=== PATIENT | male | born 2000 | race Hispanic/Latino ===

== ENCOUNTER 2022-01-12 01:20 | Emergency (ER) | payer SELFPAY | END 2022-01-12 07:46 | disposition home or self-care (01) | LOC: CSHERS 01:20 | DX: F10.129 Alcohol abuse with intoxication, unspecified (principal) | CPT/HCPCS: 36416; 96360 ==

== ENCOUNTER 2022-07-29 21:02 | Observation (INO) | payer OTHER, SELFPAY ==
[2022-07-29 22:14] LABS: #Eosinphils 0.2 10x3/uL (0.0-0.5); #Monocytes 0.6 10x3/uL (0.0-1.1); #Neutrophils 4.4 10x3/uL (1.5-8.4); %Basophils 0.5 % (0.0-2.0); %Eosinophils 1.8 % (0.0-6.0); %Lymphocytes 36.7 % (18.0-47.0); %Monocytes 7.1 % (0.0-10.0); %Neutrophils 53.7 % (40.0-75.0); Hemoglobin 14.7 g/dL (13.5-17.5); Mean Corpuscular HGB CONC 33.3 g/dL (32.0-36.0); Mean Corpuscular Volume 81.1 fl (81.2-95.1); Mean Platelet Volume 9.4 fl (7.4-10.4); Platelet Count 229 10x3/uL (150-450); RBC Distribution Width 12.6 % (11.5-14.5); Red Blood Cell (RBC) Count 5.45 10x6/uL (4.32-5.72); White Blood Cell (WBC) Count 8.2 10x3/uL (3.5-10.5)
[2022-07-29 22:17] LABS: Bilirubin Neg (Negative); Blood, Urine Negative (Negative); Glucose, Urine (Dipstick) Normal (Negative); Ketone, Urine Negative (Negative); Leukocyte Negative (Negative); Nitrite Negative (Negative); Protein, Urine (Dipstick) Negative (Neg-Trace); Specific Gravity, Urine 1.015 (1.005-1.030); Urobilinogen Normal mg/dL (Less than 2); pH, Urine 6.5 (5.0-9.0)
[2022-07-29 22:22] LABS: Clarity Clear (Clear)
[2022-07-29 22:35] LABS: ALT (SGPT) 13 U/L (8-55); AST (SGOT) 17 U/L (10-45); Albumin 4.6 g/dL (3.5-5.0); Alkaline Phosphatase 71 U/L (50-130); Anion Gap 12 mmol/L (10-20); BUN (Urea Nitrogen) 14 mg/dL (8.4-21.0); Calc. Creatinine Clearance 0 mL/min (70-130); Calcium 9.7 mg/dL (7.8-10.44); Carbon Dioxide 28 mmol/L (22-29); Chloride 102 mmol/L (98-107); Estimated GFR 106; Glucose 95 mg/dL (70-105); Lipase 28 U/L (8-78); Potassium 4.2 mmol/L (3.5-5.1); Protein, Total 7.6 g/dL (6.0-8.3); Sodium 138 mmol/L (136-145)
[2022-07-29] MEDS ORDERED: Piperacillin/Tazobactam 3.375 GM VIAL ONE (23:46)
[2022-07-30 01:08] LABS: SARS-CoV-2 NAA Rapid Test Not Detected (NotDetected)
[2022-07-30] MEDS ORDERED: Bupivacaine/Epinephrine 0.25% 30 ML VIAL ONE (11:25)
[2022-07-30] MEDS ORDERED: CEFAZOLIN 2 GM VIAL ONE (14:53)
[2022-07-30] MEDS ORDERED: Midazolam HCl 2 mg/2 ml Vial ONE (15:11)
[2022-07-30] MEDS ORDERED: PROPOFOL 20 ML ONE (15:11)
[2022-07-30] MEDS ORDERED: Fentanyl 100 MCG/2 ML VIAL ONE (15:11)
[2022-07-30] MEDS ORDERED: Rocuronium Bromide 10 MG/ML (10ML VIAL) ONE (15:12)
[2022-07-30] MEDS ORDERED: Lidocaine 1% PF 5 ML VIAL ONE (15:12)
[2022-07-30] MEDS ORDERED: Ondansetron PF 4 MG/2 ML Vial ONE ×2 (15:12→16:43)
[2022-07-30] MEDS ORDERED: Dexamethasone 4 mg/ml Vial ONE (15:12)
[2022-07-30] MEDS ORDERED: Glycopyrrolate 0.2 MG/ML 5 ML SYRINGE ONE (15:54)
[2022-07-30] MEDS ORDERED: Ketorolac Tromethamine 30 MG/ML VIAL ONE (15:54)
[2022-07-30] MEDS ORDERED: HYDROcodone/Acetaminophen 5/325 mg Tablet ONE (17:01)
== END 2022-07-30 18:08 | disposition home or self-care (01) ==
LOC: CSHERS 21:02 → INTOOBSV 07-30 03:19 → CSHERHOLD 07-30 03:19
PROVIDERS: ADMIT Surgery; ATTEND Surgery
PROC: 0DTJ4ZZ Resection of Appendix, Percutaneous Endoscopic Approach (ICD-10-PCS; principal; 2022-07-30)
DX: K35.80 Unspecified acute appendicitis (principal); Z20.822 Contact with and (suspected) exposure to COVID-19
CPT/HCPCS: 36415; 74177; 80053; 81003; 83690; 85025; 87040; 88304; 96365; A4649; G0378; J1100; J1885; J2250; J2405; J2543; J2704; J3010; U0002